=== PATIENT | male | born 1935 | race Caucasian/White ===

== ENCOUNTER 2019-04-20 10:52 | Emergency (ER) | payer MEDICARE, OTHER ==
[~2019-04-20] VITALS: Ht 167.6 cm; Wt 63.6 kg
[~2019-04-20 10:52] MED LIST: ACET500T98; AMLO-145 ORAL; AMLO5TAB4; ATOR20TA17; ATOR20TA65 ORAL; CELE200C; CYAN500T55 PO; DICL100G37 TOP; DONE5TAB46 ORAL; ERGO500013 PO; ESOM40CA; ICOS1CAP PO; LATA7.5D OP; LINA145C ORAL; MECL12.574; MECL12.574 PO; RAME8TAB21; TAMS-14; TRAM50TA2 PO; VALS40TA2
[2019-04-20 10:59] VITALS: Ht 167.6 cm; Wt 63.6 kg
[2019-04-20] MEDS ORDERED: MECLIZINE 12.5 MG TAB PO ONE (12:00)
[2019-04-20 14:32] VITALS: BP 134/78; PULSE 62; RESP 18
== END 2019-04-20 14:46 | disposition home or self-care (01) ==
LOC: E/R 10:52
DX: R42 Dizziness and giddiness (principal); M54.5 Low back pain
CPT/HCPCS: 36415; 70450; 72131; 80048; 82962; 85025